=== PATIENT | male | born 1985 | race Caucasian/White ===

== ENCOUNTER 2019-08-28 11:52 | Outpatient (CLI) | payer BC, SELFPAY ==
--- NOTE | ~2019-08-28 | XR_ITS ---
XR abdomen/kub 1V 08/28/2019 12:21 Indication: History of ileus. Cramping and vomiting. Liver transplant recipient. Procedure: Supine view of the abdomen Comparison: 04/03/2007 Findings: There is diffusely distended small bowel and colon. There is a catheter overlying the right lower abdomen and pelvis. There are surgical changes in the right upper abdomen presumably from prev ious liver transplant. No acute osseous abnormality. Impression: 1: Diffusely dilated small bowel and colon, most likely adynamic ileus. Reviewed, dictated and finalized at location A. Impression: 1: Diffusely dilated small bowel and colon, most likely adynamic ileus.
== END 2019-08-28 11:53 | disposition home or self-care (01) ==
PROVIDERS: PCP Family Medicine
DX: Z94.4 Liver transplant status (principal); Z94.0 Kidney transplant status; Z87.19 Personal history of other diseases of the digestive system
CPT/HCPCS: 74018